=== PATIENT | female | born 1995 | race Caucasian/White ===

== ENCOUNTER 2017-02-07 05:08 | Inpatient (IN) | payer MEDICAID ==
[2017-02-07] MEDS: Lactated Ringers 1,000 ML IV SCH ×4 (05:25→16:06)
[2017-02-07] MEDS ORDERED: ceFAZolin 2 GM in Premix Bag 1 BAG IV ONE (06:28)
[2017-02-07] MEDS ORDERED: Citric Acid/Sodium Citrate Solution 30 ML Cup PO ONE (06:28)
[2017-02-07] MEDS ORDERED: Oxytocin/Normal Saline 30 UNIT/500 ML BAG IV SCH (06:30)
[2017-02-07] MEDS ORDERED: Oxytocin/Normal Saline 60 UNIT/1,000 ML BAG ONE (06:38)
--- NOTE | 2017-02-07 07:48 | HP ---
She was admitted short time ago at [facility]. HISTORY OF PRESENT ILLNESS: This patient is a 21-year-old, 1, who is followed by Dr. Albert. She does have an NEIDA of February 01 and she is currently at 40 weeks 6 days gestation. She did enter Labor and Delivery earlier this morning between 5 and 5:30. The patient does have a history of spontaneous rupture of membranes of clear fluid that happened at about 4:00 a.m. at home this morning. She has been experiencing good movement. She has been noted, however, to have 2 significant spontaneous or variable deceleration down to the 88 and 90 range. Those decelerations did last 2-1/2 to 3 minutes. There has been recovery at the present time. The patient does have accelerations at the present time and minimal variability. She is currently in the left lateral recumbent position with oxygen flowing. Please see the electronic health record for the remainder of her lab data and history. She denies any other complications with this . She is known to be group B strep negative. PAST MEDICAL HISTORY: Denies any knowledge of heart, lung, liver, or kidney disease. ALLERGIES: None known. PAST SURGICAL HISTORY: Previous surgery, none. MEDICATIONS: At present: 1. vitamins. 2. Iron. FAMILY HISTORY: Noncontributory. Denies any knowledge of diabetes. SOCIAL HISTORY: She is a nonsmoker and does not use alcohol. She is here with her today and [place]. PHYSICAL EXAMINATION: Vital Signs: Admission vital signs revealed the blood pressure to be normotensive. The patient is afebrile. HEENT: The sclerae are nonicteric. Lungs: Clear to A. Heart: Regular rhythm without murmur. ABDOMEN: Gravid with heart tone baseline in the 136-144 range at present. There is a category 1 heart tones at the moment with minimal variability and accelerations present. Also there was nice scalp stimulation. Increase in heart beat noted on my vaginal exam. Please see the 2 significant variable decelerations from a short time ago, however. The patient is in the left lateral recumbent position at the present time and estimated weight is somewhat difficult to determine, but possibly in the 8-pound range. Vaginal: Exam reveals the cervix to be 3.5 cm dilated, 90% effaced, and the vertex at -1 station. No loop of cord is palpated. Extremities: Negative. IMPRESSION: A 21-year-old 1 patient at 40 weeks 6 days gestation. Because of the non-reassuring heart tones earlier and because of the decelerations of a variable nature that occurred short time ago and very shortly after admission, we have thoroughly discussed her with Dr. Albert. We do recommend section because the patient is early in the course of labor and the likelihood of further deterioration of the heart tones is high. She is a primigravida with a number of hours of labor ahead of her. We did thoroughly explained to the patient the goals and recommendations for a primary section. The alternative of further labor, which I do not recommend was also discussed with her. We did discuss the possible risk of complications and possible adverse outcomes and adverse side effects from the section with her. She does give us consent to proceed with section as well as transfusion if it was needed. All of her questions have been answered and also the 's questions have been answered as well. We will proceed with emergency section shortly. [facility] /[id number]
[2017-02-07] MEDS ORDERED: diphenhydrAMINE 50 MG/ML SDV IVPUSH PRN (08:38)
[2017-02-07] MEDS ORDERED: Naloxone 2 MG/2 ML Syringe IVPUSH PRN (08:38)
[2017-02-07] MEDS ORDERED: Misoprostol 400 MCG (4 X 100 MCG TAB) RECTAL PRN (08:38)
[2017-02-07] MEDS ORDERED: Carboprost Tromethamine 250 MCG/1 ML Amp IM ONE (08:38)
[2017-02-07] MEDS ORDERED: Ondansetron 4 MG/2 ML SDV IV PRN (08:38)
[2017-02-07] MEDS ORDERED: Acetaminophen 325 MG Tab PO PRN (08:38)
[2017-02-07] MEDS ORDERED: ePHEDrine 50 MG/ML SDV IVPUSH PRN (08:38)
[2017-02-07] MEDS ORDERED: Methylergonovine 0.2 MG/1 ML Amp IM PRN (08:38)
--- NOTE | 2017-02-07 08:41 | PCM.DEL ---
L & D Note - General Info Date of Service: 02/07/17 - Delivery Note Labor: spontaneous Delivery Outcome: Livebirth Delivery Method: Primary Presentation: Vertex Amniotic Fluid Description: Clear Cord: 3 vessels Resuscitation needed: Yes [place]: stimulated, warmed Provider: Sedrick Lieberman Score 1 min: 9 Score 5 min: 9 Delivery Comments (Free Text/Narrative):: 21-year-old, , female at 40w5d presented to Labor and Delivery with spontaneous rupture of membranes that occurred approximately 1 hour prior to arrival. When patient was connected to monitor, blood pressure was found to have recurrent and prolonged decelerations. This did not resolve with conservative measures so the decision was made to proceed with operative delivery. A viable baby boy weighing 4090 g with Apgars of 9 and 9 at one and 5 minutes respectively was delivered. There were no immediate complications. Please see operative report for more details. Melissa Albert MD - General Info Date of Service: 02/07/17 - Patient Data Vitals - most recent: Last Vital Signs Temp 36.5 C 02/07/17 05:14 Pulse 71 02/07/17 06:00 Resp 16 02/07/17 06:00 BP 125/76 02/07/17 06:00 Pulse Ox Weight - most recent: 94.347 kg I&O - last 24 hours: Intake & Output 02/06/17 02/07/17 02/07/17 22:59 06:59 14:59 Intake Total 1000 100 Balance 1000 100 Lab Results last 24 hrs: Laboratory Results - last 24 hr 02/07/17 02/07/17 Range/Units 05:20 05:20 WBC 12.3 H (5.0-10.0) 10^3/uL RBC 4.31 (4.2-5.4) 10^6/uL Hgb 10.7 L (12.0-16.0) g/dL Hct 34.1 L (37.0-47.0) % MCV 79.1 L (80-100) fL MCH 24.8 L (27.0-34.0) pg MCHC 31.4 L (33.0-35.0) g/dL Plt Count 235 (150-450) 10^3/uL Blood Type B POSITIVE Gel Antibody Screen Negative Med Orders - Current: Current Medications Oxytocin/Sodium Chloride (Pitocin In Ns 30 Unit/500 Ml) 30 unit in 500 mls @ 2 mls/hr IV TITRATE YURY; 2 MUNITS/MIN PRN Reason: Protocol Discontinued Medications Citric Acid/Sodium Citrate (Bicitra Solution) 30 ml PO ONETIME ONE Stop: 02/07/17 06:29 Last Admin: 02/07/17 06:50 Dose: 30 ml Lactated Ringer's (Ringers, Lactated) 1,000 mls @ 125 mls/hr IV ASDIRECTED YURY Last Admin: 02/07/17 06:43 Dose: 125 mls/hr Cefazolin Sodium/Dextrose 2 gm (/ Premix) 50 mls @ 100 mls/hr IV ONETIME ONE Stop: 02/07/17 06:57 Last Admin: 02/07/17 07:02 Dose: 100 mls/hr Oxytocin/Sodium Chloride (Pitocin In Ns 30 Unit/500 Ml) Confirm Administered Dose 60 unit in 1,000 mls @ as directed .ROUTE .STK-MED ONE Stop: 02/07/17 06:39 - Problem List & Annotations (1) care in third trimester SNOMED Code(s): 100352706, 70452616, 54408768, 940322404, 469415483 Code(s): Z34.93 - ENCNTR FOR SUPRVSN OF NORMAL PREG, UNSP, THIRD TRIMESTER Status: Acute (2) intolerance to labor, delivered, current hospitalization SNOMED Code(s): 974758541 Code(s): O77.9 - LABOR AND DELIVERY COMPLICATED BY STRESS, UNSPECIFIED Status: Acute (3) Delivered by section SNOMED Code(s): 056903429 Code(s): O82 - ENCOUNTER FOR DELIVERY WITHOUT INDICATION Status: Acute - Problem List Review Problem List Initiated/Reviewed/Updated: Yes - My Orders Last 24 Hours: My Active Orders 02/07/17 06:30 Oxytocin/Normal Saline [Pitocin in NS 30 UNIT/500 ML] 30 unit in 500 ml IV TITRATE 02/07/17 08:38 Patient Status [ADT] Routine Bedrest [RC] ASDIRECTED Communication Order [RC] PER UNIT ROUTINE Communication Order [RC] PER UNIT ROUTINE Communication Order [RC] Per Unit Routine Intake and Output [RC] Q8H Notify Provider Intake and Out [RC] ASDIRECTED Notify Provider Vital Signs OB [RC] ASDIRECTED RT Incentive Spirometry [RC] Q2HWA Urinary Catheter Removal [RC] Per Unit Routine Vital Signs [RC] PER UNIT ROUTINE Consult to Curator [CONS] Routine Acetaminophen [Tylenol] 650 mg PO Q6H PRN Acetaminophen/oxyCODONE [Percocet 325-5 MG] 1 tab PO Q4H PRN Acetaminophen/oxyCODONE [Percocet 325-5 MG] 2 tab PO Q4H PRN Carboprost Tromethamine [Hemabate DS] 250 mcg IM ONETIME ONE Docusate Sodium [Colace] 100 mg PO Q12H PRN Ibuprofen [Motrin] 800 mg PO Q8H PRN Methylergonovine [Methergine] 0.2 mg IM ONETIME PRN Misoprostol [Cytotec] 800 mcg RECTAL ASDIRECTED PRN Naloxone [Narcan] 0.1 mg IVPUSH SEECOMMENT PRN Ondansetron [Zofran] 4 mg IV Q4H PRN Simethicone 80 mg PO Q4H PRN diphenhydrAMINE [Benadryl] 25 mg IVPUSH Q6H PRN ePHEDrine [ePHEDrine Sulfate] 5 mg IVPUSH SEECOMMENT PRN Antiembolic Hose [OM.PC] Per Unit Routine Assess Lochia [WOMSER] Per Unit Routine Assess Uterine Involution [WOMSER] Per Unit Routine Breast Pump [WOMSER] Per Unit Routine Sequential Compression Device [OM.PC] Per Unit Routine Resuscitation Status Routine 02/07/17 08:39 Antiembolic Devices [RC] PER UNIT ROUTINE 02/07/17 08:45 Ketorolac [Toradol] 15 mg IVPUSH Q6H Lactated Ringers @ 125 MLS/HR(1000ml) Lactated Ringers [Ringers, Lactated] 1, 000 ml IV ASDIRECTED 02/07/17 Breakfast Clear Liquid Diet [DIET] 02/07/17 Lunch Regular Diet [DIET] 02/08/17 07:00 CBC W/O DIFF,HEMOGRAM [HEME] Routine - Assessment Assessment:: 21-year-old now , status post primary section for nonreassuring heart tones - Plan Plan:: 1. Initiate routine postoperative orders 2. Repeat hemoglobin in the morning 3. Consult as patient desires to breast-feed 4. Anticipate discharge 02/10/17. Melissa Albert MD
--- NOTE | 2017-02-07 08:41 | PCM.SN ---
- Free Text/Narrative Note: Section Operative Report Date of Surgery: 02/07/2017 Surgeon: Melissa Albert MD Block And Case Maker: Dr. Mio MD Pre-Operative Diagnosis: PROM intolerance of labor Post-Operative Diagnosis: Same Procedure Performed: Primary low transverse section Anesthesia: Spinal EBL: 350 mL IVF: 3000 mL Drains: Stauffer catheter with 200 mL of urine output Specimens: None Complications: None apparent Findings: Normal uterus, tubes, and ovaries. Indication and Consent: Upon arrival to Labor and Delivery with PROM, the heart tracing showed signs of developing hypoxemia. Conservative measures of oxygen supplementation and position changes did not relieve these findings. The heart tracing continued to show evidence of worsening hypoxemia. section was recommended to the patient for wellbeing. The patient understood that the risks of section include, but are not limited to, visceral or vascular injury, infection, blood loss and need for blood transfusion, prolonged hospitalization, and reoperation. The patient stated understanding and desired to proceed. All questions were answered. Procedure in Detail: The patient was taken to the operating room. Stauffer catheter and pneumoboots were placed. She was then prepped and draped in routine fashion in dorsal supine position with a left thacker tilt. Two grams of cefazolin (Ancef) were given for infection prophylaxis. Spinal anesthesia was administered. A Pfannenstiel skin incision was made with a scalpel and carried down to the fascia. The fascia was incised and extended laterally. The rectus musculature was in the midline down to the level of the pubic symphysis. The peritoneum was found to be free of adherent bowel or bladder tissue and entered bluntly. The peritoneal opening was then extended superiorly and inferiorly to the bladder reflection with good visualization of the bladder. The Buddy retractor was placed. Brief intraabdominal survey revealed scant, clear peritoneal fluid and thinned-out lower uterine segment. Using forceps and mets, a bladder flap was formed and bluntly from the uterus. The lower uterine segment was incised with a scalpel. The amniotic sac was ruptured with an Allis clamp and clear fluid was noted. The uterine incision was extended bluntly with lateral and upward traction. The fetus was in vertex position. The head was elevated out of the maternal pelvis with special attention paid to avoid using the uterine incision as a fulcrum. Gentle fundal pressure was applied once the head was brought into the incision. The infant was delivered with minimal difficulty. Bulb suctioning of the 's nose and mouth was not performed on the operative field. The cord was clamped and cut in standard fashion, and the was handed over to the awaiting nursery staff. IV oxytocin was initiated to facilitate uterine contractions. The placenta was delivered intact with manual message of the uterine fundus along with gentle cord traction. The uterus was then exteriorized. The inside of the uterus was gently wiped with a lap sponge to assure complete removal of remaining products of conception. The uterine incision was closed with 0 - Vicryl suture in a running locked fashion. A second imbricating layer of 0- Vicryl was also placed. The incision was inspected and hemostasis achieved. The ovaries and tubes were visualized and found to be normal. The uterus, tubes, and ovaries were returned to the abdominal cavity. The blood clots and fluid were wiped out of the abdomen and pelvis with moist laparotomy sponges. The uterine incision was re-inspected along with all other incised surfaces and good hemostasis was confirmed. The Buddy retractor was removed. The peritoneus was then closed using 2-0 Vicyrl. The fascia was then closed with 2-0 looped PDS suture with care not to include any underlying abdominal contents. The sub-cutaneous layer was reapproximated with plain suture. The skin was closed with 3-0 suture on a Kirk needle in a subcuticular fashion. Dressing was applied. Sponge and instrument counts were reported as correct times two. Pt tolerated procedure well and was taken to PACU in stable condition. Melissa Albert MD
[2017-02-07] MEDS: Ketorolac 30 MG/ML SDV IVPUSH SCH ×2 (16:02→20:52)
[2017-02-07] MEDS: Simethicone 80 MG Tab.Chew PO PRN (20:53)
[2017-02-07] MEDS: Docusate Sodium 100 MG Cap PO PRN (20:53)
[2017-02-08] MEDS: Ketorolac 30 MG/ML SDV IVPUSH SCH (02:27)
[2017-02-08] MEDS: Lactated Ringers 1,000 ML IV SCH (02:51)
[2017-02-08] MEDS: Acetaminophen/oxyCODONE 325-5 MG Tab PO PRN ×4 (08:03→23:02)
[2017-02-08] MEDS: Simethicone 80 MG Tab.Chew PO PRN ×3 (08:03→20:11)
[2017-02-08] MEDS: Docusate Sodium 100 MG Cap PO PRN ×2 (08:04→20:13)
[2017-02-08] MEDS: Ibuprofen 800 MG Tab PO PRN ×2 (11:50→20:11)
[2017-02-08] MEDS: Prenatal Multivitamin with Calcium/Folic Acid/Iron Tab PO SCH (11:50)
[2017-02-09] MEDS: Acetaminophen/oxyCODONE 325-5 MG Tab PO PRN ×4 (07:06→21:45)
[2017-02-09] MEDS: Ibuprofen 800 MG Tab PO PRN ×2 (07:06→17:48)
[2017-02-09] MEDS: Simethicone 80 MG Tab.Chew PO PRN ×3 (07:07→21:10)
[2017-02-09] MEDS: Prenatal Multivitamin with Calcium/Folic Acid/Iron Tab PO SCH (07:07)
[2017-02-09] MEDS: Docusate Sodium 100 MG Cap PO PRN ×2 (07:07→21:10)
[2017-02-09] MEDS ORDERED: Hydrocortisone 1% Oint 28 GM Tube TOP PRN (17:58)
[2017-02-10] MEDS: Acetaminophen/oxyCODONE 325-5 MG Tab PO PRN ×3 (01:46→10:10)
[2017-02-10] MEDS: Ibuprofen 800 MG Tab PO PRN ×2 (01:46→10:11)
--- NOTE | 2017-02-10 09:18 | PCM.PNPP ---
- General Info Date of Service: 02/09/17 Subjective Update: Patient is postoperative day #2 status post primary section for nonreassuring heart tones. She is doing well. She reports her pain is well controlled. She is tolerating a regular diet. She has been out of bed. Her Stauffer has been removed, and she is urinating without difficulty. She is passing gas but has not yet had a bowel movement. She reports minimal vaginal bleeding. Breast-feeding is going well. No concerns per patient or per nursing. Functional Status: Reports: pain controlled, tolerating diet, ambulating, urinating - Review of Systems General: Reports: No Symptoms HEENT: Reports: no symptoms Pulmonary: Reports: no symptoms Cardiovascular: Reports: No Symptoms Gastrointestinal: Reports: No symptoms Genitourinary: Reports: no symptoms Musculoskeletal: Reports: no symptoms - General Info Date of Service: 02/09/17 - Patient Data Vital Signs - most recent: Last Vital Signs Temp 36.5 C 02/10/17 04:00 Pulse 101 H 02/10/17 04:00 Resp 16 02/10/17 04:00 BP 119/72 02/10/17 04:00 Pulse Ox 98 02/10/17 04:00 Weight - most recent: 94.347 kg I&O - last 24 hours: Intake & Output 02/09/17 02/10/17 02/10/17 22:59 06:59 14:59 Intake Total 520 Balance 520 Med Orders - Current: Current Medications Acetaminophen (Tylenol) 650 mg PO Q6H PRN PRN Reason: mild pain or fever Diphenhydramine HCl (Benadryl) 25 mg IVPUSH Q6H PRN PRN Reason: Itching or Nausea Docusate Sodium (Colace) 100 mg PO Q12H PRN PRN Reason: Constipation Last Admin: 02/09/17 21:10 Dose: 100 mg Ephedrine Sulfate (Ephedrine Sulfate) 5 mg IVPUSH SEECOMMENT PRN PRN Reason: Other Hydrocortisone (Hydrocortisone 1% Oint) 0 gm TOP TID PRN PRN Reason: Itching Oxytocin/Sodium Chloride (Pitocin In Ns 30 Unit/500 Ml) 30 unit in 500 mls @ 2 mls/hr IV TITRATE YURY; 2 MUNITS/MIN PRN Reason: Protocol Last Titration: 02/07/17 16:08 Dose: 0 munits/min, 0 mls/hr Lactated Ringer's (Ringers, Lactated) 1,000 mls @ 125 mls/hr IV ASDIRECTED [facility] Last Admin: 02/08/17 02:51 Dose: 125 mls/hr Ibuprofen (Motrin) 800 mg PO Q8H PRN PRN Reason: mild pain or fever Last Admin: 02/10/17 01:46 Dose: 800 mg Methylergonovine Maleate (Methergine) 0.2 mg IM ONETIME PRN PRN Reason: Excessive Vaginal Bleeding Misoprostol (Cytotec) 800 mcg RECTAL ASDIRECTED PRN PRN Reason: Bleeding Naloxone HCl (Narcan) 0.1 mg IVPUSH SEECOMMENT PRN PRN Reason: Respiratory Depression Ondansetron HCl (Zofran) 4 mg IV Q4H PRN PRN Reason: Nausea/Vomiting Oxycodone/Acetaminophen (Percocet 325-5 Mg) 1 tab PO Q4H PRN PRN Reason: Pain (moderate 4-6) Last Admin: 02/08/17 13:00 Dose: 1 tab Oxycodone/Acetaminophen (Percocet 325-5 Mg) 2 tab PO Q4H PRN PRN Reason: Pain (moderate 4-6) Last Admin: 02/10/17 05:50 Dose: 2 tab Prenat Multivit/[place]/Iron/Folic Ac ( Plus Iron) 1 each PO WITHBREAKFAST [facility] Last Admin: 02/09/17 07:07 Dose: 1 each Simethicone (Simethicone) 80 mg PO Q4H PRN PRN Reason: Gas Last Admin: 02/09/17 21:10 Dose: 80 mg Discontinued Medications Carboprost Tromethamine (Hemabate Ds) 250 mcg IM ONETIME ONE Stop: 02/07/17 08:39 Last Admin: 02/07/17 16:04 Dose: Not Given Citric Acid/Sodium Citrate (Bicitra Solution) 30 ml PO ONETIME ONE Stop: 02/07/17 06:29 Last Admin: 02/07/17 06:50 Dose: 30 ml Lactated Ringer's (Ringers, Lactated) 1,000 mls @ 125 mls/hr IV ASDIRECTED [facility] Last Admin: 02/07/17 06:43 Dose: 125 mls/hr Cefazolin Sodium/Dextrose 2 gm (/ Premix) 50 mls @ 100 mls/hr IV ONETIME ONE Stop: 02/07/17 06:57 Last Admin: 02/07/17 07:02 Dose: 100 mls/hr Oxytocin/Sodium Chloride (Pitocin In Ns 30 Unit/500 Ml) Confirm Administered Dose 60 unit in 1,000 mls @ as directed .ROUTE .STK-MED ONE Stop: 02/07/17 06:39 Ketorolac Tromethamine (Toradol) 15 mg IVPUSH Q6H YURY Stop: 02/08/17 02:01 Last Admin: 02/08/17 02:27 Dose: 15 mg - Infant Interaction Infant Disposition, : in Room with Family Infant Interaction: Holding Infant Infant Feeding: Breastfed Infant; Nursed Well Support Person: Significant Other - Recovery Exam Fundal Tone: Firm Fundal Level: 2 Fingerbreadths Below Umbilicus Fundal Placement: Midline Lochia Amount: Small Lochia Color: Rubra/Red Perineum Description: Intact, Minimal Bruising/Swelling Episiotomy/Laceration: None Bladder Status: Voiding Urinary Elimination: Indwelling Catheter - Exam General: alert, oriented Lungs: Clear to auscultation, Normal respiratory effort Cardiovascular: Regular Rate, Regular Rhythm, No Murmurs Abdomen: bowel sounds present, soft, no tenderness, no distension Extremities: no edema Skin: warm, dry, intact Wound/Incisions: healing well, no drainage. No: erythema - Problem List & Annotations (1) Delivered by section SNOMED Code(s): 603850267 Code(s): O82 - ENCOUNTER FOR DELIVERY WITHOUT INDICATION Status: Acute (2) intolerance to labor, delivered, current hospitalization SNOMED Code(s): 905528690 Code(s): O77.9 - LABOR AND DELIVERY COMPLICATED BY STRESS, UNSPECIFIED Status: Acute (3) care in third trimester SNOMED Code(s): 090214090, 72994008, 02315623, 248817803, 130418782 Code(s): Z34.93 - ENCNTR FOR SUPRVSN OF NORMAL PREG, UNSP, THIRD TRIMESTER Status: Acute - Problem List Review Problem List Initiated/Reviewed/Updated: Yes - My Orders Last 24 Hours: My Active Orders 02/09/17 17:58 Hydrocortisone [Hydrocortisone 1% Oint] 0 gm TOP TID PRN - Assessment Assessment:: 21-year-old female postoperative day #2 status post primary section - Plan Plan:: 1. Continue routine cares 2. Breast-feeding well 3. Anticipate discharge tomorrow. Melissa Albert MD
--- NOTE | 2017-02-10 09:18 | PCM.PNPP ---
- General Info Date of Service: 02/08/17 Subjective Update: Patient is postoperative day #1 status post primary section for nonreassuring heart tones. She is doing well. She reports her pain is well controlled. She is tolerating a regular diet. She has been out of bed. Her Stauffer is in place, and she is making good urine output. She reports minimal vaginal bleeding. Breast-feeding is going well. No concerns per patient or per nursing. Functional Status: Reports: pain controlled, tolerating diet. Denies: new symptoms - Review of Systems General: Reports: No Symptoms HEENT: Reports: no symptoms Pulmonary: Reports: no symptoms Cardiovascular: Reports: Orthopnea Gastrointestinal: Reports: No symptoms Genitourinary: Reports: no symptoms Musculoskeletal: Reports: no symptoms Skin: Reports: no symptoms - General Info Date of Service: 02/08/17 - Patient Data Vital Signs - most recent: Last Vital Signs Temp 36.5 C 02/10/17 04:00 Pulse 101 H 02/10/17 04:00 Resp 16 02/10/17 04:00 BP 119/72 02/10/17 04:00 Pulse Ox 98 02/10/17 04:00 Weight - most recent: 94.347 kg I&O - last 24 hours: Intake & Output 02/09/17 02/10/17 02/10/17 22:59 06:59 14:59 Intake Total 520 Balance 520 Med Orders - Current: Current Medications Acetaminophen (Tylenol) 650 mg PO Q6H PRN PRN Reason: mild pain or fever Diphenhydramine HCl (Benadryl) 25 mg IVPUSH Q6H PRN PRN Reason: Itching or Nausea Docusate Sodium (Colace) 100 mg PO Q12H PRN PRN Reason: Constipation Last Admin: 02/09/17 21:10 Dose: 100 mg Ephedrine Sulfate (Ephedrine Sulfate) 5 mg IVPUSH SEECOMMENT PRN PRN Reason: Other Hydrocortisone (Hydrocortisone 1% Oint) 0 gm TOP TID PRN PRN Reason: Itching Oxytocin/Sodium Chloride (Pitocin In Ns 30 Unit/500 Ml) 30 unit in 500 mls @ 2 mls/hr IV TITRATE YURY; 2 MUNITS/MIN PRN Reason: Protocol Last Titration: 02/07/17 16:08 Dose: 0 munits/min, 0 mls/hr Lactated Ringer's (Ringers, Lactated) 1,000 mls @ 125 mls/hr IV ASDIRECTED [facility] Last Admin: 02/08/17 02:51 Dose: 125 mls/hr Ibuprofen (Motrin) 800 mg PO Q8H PRN PRN Reason: mild pain or fever Last Admin: 02/10/17 01:46 Dose: 800 mg Methylergonovine Maleate (Methergine) 0.2 mg IM ONETIME PRN PRN Reason: Excessive Vaginal Bleeding Misoprostol (Cytotec) 800 mcg RECTAL ASDIRECTED PRN PRN Reason: Bleeding Naloxone HCl (Narcan) 0.1 mg IVPUSH SEECOMMENT PRN PRN Reason: Respiratory Depression Ondansetron HCl (Zofran) 4 mg IV Q4H PRN PRN Reason: Nausea/Vomiting Oxycodone/Acetaminophen (Percocet 325-5 Mg) 1 tab PO Q4H PRN PRN Reason: Pain (moderate 4-6) Last Admin: 02/08/17 13:00 Dose: 1 tab Oxycodone/Acetaminophen (Percocet 325-5 Mg) 2 tab PO Q4H PRN PRN Reason: Pain (moderate 4-6) Last Admin: 02/10/17 05:50 Dose: 2 tab Prenat Multivit/[place]/Iron[facility]olic Ac ( [facility]) [facility] Last Admin: 02/09/17 07:07 Dose: 1 each Simethicone (Simethicone) 80 mg PO Q4H PRN PRN Reason: Gas Last Admin: 02/09/17 21:10 Dose: 80 mg Discontinued Medications Carboprost Tromethamine (Hemabate Ds) 250 mcg IM ONETIME ONE Stop: 02/07/17 08:39 Last Admin: 02/07/17 16:04 Dose: Not Given Citric Acid/Sodium Citrate (Bicitra Solution) 30 ml PO ONETIME ONE Stop: 02/07/17 06:29 Last Admin: 02/07/17 06:50 Dose: 30 ml Lactated Ringer's (Ringers, Lactated) 1,000 mls @ 125 mls/hr IV ASDIRECTED [facility] Last Admin: 02/07/17 06:43 Dose: 125 mls/hr Cefazolin Sodium/Dextrose 2 gm (/ Premix) 50 mls @ 100 mls/hr IV ONETIME ONE Stop: 02/07/17 06:57 Last Admin: 02/07/17 07:02 Dose: 100 mls/hr Oxytocin/Sodium Chloride (Pitocin In Ns 30 Unit/500 Ml) Confirm Administered Dose 60 unit in 1,000 mls @ as directed .ROUTE .STK-MED ONE Stop: 02/07/17 06:39 Ketorolac Tromethamine (Toradol) 15 mg IVPUSH Q6H YURY Stop: 02/08/17 02:01 Last Admin: 02/08/17 02:27 Dose: 15 mg - Interaction Disposition, : in Room with Family Infant Interaction: Holding Infant Feeding: Breastfed ; Nursed Well Support Person: Significant Other - Recovery Exam Fundal Tone: Firm Fundal Level: 2 Fingerbreadths Below Umbilicus Fundal Placement: Midline Lochia Amount: Small Lochia Color: Rubra/Red Perineum Description: Intact, Minimal Bruising/Swelling Episiotomy/Laceration: None Bladder Status: Voiding Urinary Elimination: Indwelling Catheter - Exam General: alert, oriented Lungs: Clear to auscultation, Normal respiratory effort Cardiovascular: Regular Rate, Regular Rhythm, No Murmurs Abdomen: soft, no tenderness, no distension Extremities: edema (Trace) Skin: warm, dry, intact Wound/Incisions: dressing dry and intact - Problem List & Annotations (1) Delivered by section SNOMED Code(s): 577864915 Code(s): O82 - ENCOUNTER FOR DELIVERY WITHOUT INDICATION Status: Acute (2) intolerance to labor, delivered, current hospitalization SNOMED Code(s): 851073796 Code(s): O77.9 - LABOR AND DELIVERY COMPLICATED BY STRESS, UNSPECIFIED Status: Acute (3) care in third trimester SNOMED Code(s): 469811408, 64017429, 90054117, 422934971, 367144659 Code(s): Z34.93 - ENCNTR FOR SUPRVSN OF NORMAL PREG, UNSP, THIRD TRIMESTER Status: Acute - Problem List Review Problem List Initiated/Reviewed/Updated: Yes - My Orders Last 24 Hours: My Active Orders 02/09/17 17:58 Hydrocortisone [Hydrocortisone 1% Oint] 0 gm TOP TID PRN - Assessment Assessment:: 21-year-old female postoperative day #1 status post primary section - Plan Plan:: 1. Continue routine cares 2. Appropriate drop in hemoglobin noted. Will start iron p.r.n. 3. Breast-feeding well. available as needed. 4. Anticipate discharge 02/10/17. Melissa Albert MD
--- NOTE | 2017-02-10 09:19 | PCM.DCSUM1 ---
Discharge Summary - Hospital Course Free Text/Narrative:: 21-year-old female presented to labor and delivery with spontaneous rupture of membranes at 40w5d. Due to nonreassuring heart tones, patient was taken for section. She delivered a viable male infant weighing 4090 g with Apgars of 9 and 9 at one and 5 minutes respectively. There were no complications with delivery. - Discharge Data Discharge Date: 02/10/17 Discharge Disposition: Home, Self-Care 01 Condition: Good - Patient Summary/Data Operative Procedure(s) Performed: Primary section Complications: None Consults: Consultations 02/07/17 08:38 Consult to Plumbing Technician [CONS] Routine Labs Pending at D/C: None Recommended Follow-up Testing/Procedures: None Planned Operative Procedure(s) after DC: None Hospital Course: Patient had an unremarkable postoperative course. She had an expected decrease in hemoglobin due to blood loss during surgery; however, she remained clinically asymptomatic. - Patient Instructions Diet: Usual Diet as Tolerated Activity: No Lifting Over 20 Pounds Driving: Do Not Drive (While taking pain medication) Showering/Bathing: May Shower Wound/Incision Care: Keep Operative Site/Wound Site Clean and Dry Notify Provider of: Fever, Increased Pain, Swelling and Redness, Drainage, Nausea and/or Vomiting - Discharge Plan Home Medications: Home Meds Ferrous Sulfate 1 tab PO DAILY 02/07/17 [History] Vit with Ca/FA/Iron [ Plus Iron] 1 tab PO DAILY 02/07/17 [ History] Acetaminophen [Tylenol] 650 mg PO Q6H PRN #0 tablet 02/10/17 [Rx] Docusate Sodium [Colace] 100 mg PO Q12H PRN #0 cap 02/10/17 [Rx] Patient Handouts: Adhesions, [id number], Delivery, Care After, Breast Engorgement Referrals: Melissa Albert MD [Primary Care Provider] - (6 weeks) - Discharge Summary/Plan Comment DC Time >30 min.: No Discharge Summary/Plan Comment: 1. Discharge patient home today 2. Follow-up in [address] Albert for visit. 3. Reasons to return sooner were discussed with patient Melissa Albert MD - General Info Date of Service: 02/10/17 Subjective Update: Patient is postoperative day #3 status post primary section for nonreassuring heart tones. She is doing well. She reports her pain is well controlled. She is tolerating a regular diet. She has been out of bed. Her Stauffer has been removed, and she is urinating without difficulty. She is passing gas and has had a bowel movement. She reports minimal vaginal bleeding. Breast- feeding is going well. No concerns per patient or per nursing. Functional Status: Reports: pain controlled, tolerating diet, ambulating, urinating. Denies: new symptoms - Review of Systems General: Reports: No Symptoms HEENT: Reports: no symptoms Pulmonary: Reports: no symptoms Cardiovascular: Reports: No Symptoms Gastrointestinal: Reports: No symptoms Genitourinary: Reports: no symptoms Musculoskeletal: Reports: no symptoms Skin: Reports: no symptoms Neurological: Reports: No Symptoms - Patient Data Vitals - Most Recent: Last Vital Signs Temp 36.5 C 02/10/17 04:00 Pulse 101 H 02/10/17 04:00 Resp 16 02/10/17 04:00 BP 119/72 02/10/17 04:00 Pulse Ox 98 02/10/17 04:00 Weight - Most Recent: 94.347 kg I&O - Last 24 hours: Intake & Output 02/09/17 02/10/17 02/10/17 22:59 06:59 14:59 Intake Total 520 Balance 520 Med Orders - Current: Current Medications Acetaminophen (Tylenol) 650 mg PO Q6H PRN PRN Reason: mild pain or fever Diphenhydramine HCl (Benadryl) 25 mg IVPUSH Q6H PRN PRN Reason: Itching or Nausea Docusate Sodium (Colace) 100 mg PO Q12H PRN PRN Reason: Constipation Last Admin: 02/09/17 21:10 Dose: 100 mg Ephedrine Sulfate (Ephedrine Sulfate) 5 mg IVPUSH SEECOMMENT PRN PRN Reason: Other Hydrocortisone (Hydrocortisone 1% Oint) 0 gm TOP TID PRN PRN Reason: Itching Oxytocin/Sodium Chloride (Pitocin In Ns 30 Unit/500 Ml) 30 unit in 500 mls @ 2 mls/hr IV TITRATE YURY; 2 MUNITS/MIN PRN Reason: Protocol Last Titration: 02/07/17 16:08 Dose: 0 munits/min, 0 mls/hr Lactated Ringer's (Ringers, Lactated) 1,000 mls @ 125 mls/hr IV ASDIRECTED [facility] Last Admin: 02/08/17 02:51 Dose: 125 mls/hr Ibuprofen (Motrin) 800 mg PO Q8H PRN PRN Reason: mild pain or fever Last Admin: 02/10/17 01:46 Dose: 800 mg Methylergonovine Maleate (Methergine) 0.2 mg IM ONETIME PRN PRN Reason: Excessive Vaginal Bleeding Misoprostol (Cytotec) 800 mcg RECTAL ASDIRECTED PRN PRN Reason: Bleeding Naloxone HCl (Narcan) 0.1 mg IVPUSH SEECOMMENT PRN PRN Reason: Respiratory Depression Ondansetron HCl (Zofran) 4 mg IV Q4H PRN PRN Reason: Nausea/Vomiting Oxycodone/Acetaminophen (Percocet 325-5 Mg) 1 tab PO Q4H PRN PRN Reason: Pain (moderate 4-6) Last Admin: 02/08/17 13:00 Dose: 1 tab Oxycodone/Acetaminophen (Percocet 325-5 Mg) 2 tab PO Q4H PRN PRN Reason: Pain (moderate 4-6) Last Admin: 02/10/17 05:50 Dose: 2 tab Prenat Multivit/[place]/Iron/Folic Ac ( Plus Iron) 1 each PO WITHBREAKFAST [facility] Last Admin: 02/09/17 07:07 Dose: 1 each Simethicone (Simethicone) 80 mg PO Q4H PRN PRN Reason: Gas Last Admin: 02/09/17 21:10 Dose: 80 mg Discontinued Medications Carboprost Tromethamine (Hemabate Ds) 250 mcg IM ONETIME ONE Stop: 02/07/17 08:39 Last Admin: 02/07/17 16:04 Dose: Not Given Citric Acid/Sodium Citrate (Bicitra Solution) 30 ml PO ONETIME ONE Stop: 02/07/17 06:29 Last Admin: 02/07/17 06:50 Dose: 30 ml Lactated Ringer's (Ringers, Lactated) 1,000 mls @ 125 mls/hr IV ASDIRECTED [facility] Last Admin: 02/07/17 06:43 Dose: 125 mls/hr Cefazolin Sodium/Dextrose 2 gm (/ Premix) 50 mls @ 100 mls/hr IV ONETIME ONE Stop: 02/07/17 06:57 Last Admin: 02/07/17 07:02 Dose: 100 mls/hr Oxytocin/Sodium Chloride (Pitocin In Ns 30 Unit/500 Ml) Confirm Administered Dose 60 unit in 1,000 mls @ as directed .ROUTE .STK-MED ONE Stop: 02/07/17 06:39 Ketorolac Tromethamine (Toradol) 15 mg IVPUSH Q6H YURY Stop: 02/08/17 02:01 Last Admin: 02/08/17 02:27 Dose: 15 mg - Exam General: Reports: alert, oriented Lungs: Reports: Clear to auscultation Cardiovascular: Reports: Regular Rate, Regular Rhythm, No Murmurs Abdomen: Reports: bowel sounds present, soft, no tenderness, no distension Extremities: Reports: no edema Skin: Reports: warm, dry, intact Wound/Incisions: Reports: healing well. Denies: no drainage, erythema *Q Meaningful Use (DIS) - VTE *Q VTE Criteria *Q: - Stroke *Q Stroke Criteria *Q: - AMI *Q AMI Criteria *Q:
[2017-02-10] MEDS: Prenatal Multivitamin with Calcium/Folic Acid/Iron Tab PO SCH (10:11)
[2017-02-10] MEDS: Docusate Sodium 100 MG Cap PO PRN (10:12)
[2017-02-10] MEDS: Simethicone 80 MG Tab.Chew PO PRN (10:13)
[2017-02-10 12:01] VITALS: BP 125/69
[2017-02-10] MEDS ORDERED: Ondansetron 4 MG/2 ML SDV IV ONE (12:29)
[2017-02-10] MEDS ORDERED: Oxytocin/Normal Saline 30 UNIT/500 ML BAG IV ONE (12:29)
[2017-02-10] MEDS ORDERED: Dexamethasone 4 MG/ML SDV IV ONE (12:29)
[2017-02-10] MEDS ORDERED: Morphine PF 5 MG/10 ML SDV IV ONE (12:29)
[2017-02-10] MEDS ORDERED: Phenylephrine 1% 10 MG/ML SDV IV ONE (12:29)
[2017-02-10] MEDS ORDERED: Ketorolac 30 MG/ML SDV IVPUSH ONE (12:29)
[2017-02-10] MEDS ORDERED: Lactated Ringers 1,000 ML IV ONE ×2 (12:29)
== END 2017-02-10 12:30 | disposition home or self-care (01) | DRG 766 ==
LOC: DL.OBCHECK 05:08 → DL.OB 05:16 → OBSVTOIN 07:25 → DL.OB 07:25
PROVIDERS: ADMIT Family Medicine; ATTEND Family Medicine
PROC: 10D00Z1 Extraction of Products of Conception, Low, Open Approach (ICD-10-PCS; principal; 2017-02-07)
PROC: 4A1HXFZ Monitoring of Products of Conception, Cardiac Rhythm, External Approach (ICD-10-PCS; 2017-02-07)
PROC: 3E0R3BZ Introduction of Anesthetic Agent into Spinal Canal, Percutaneous Approach (ICD-10-PCS; 2017-02-07)
DX: O76 Abnormality in fetal heart rate and rhythm complicating labor and delivery (principal); Z3A.40 40 weeks gestation of pregnancy; Z37.0 Single live birth
CPT/HCPCS: 01961; 36415; 85027; 86850; 86900; 86901; A9270-GY; J0690; J1100; J1885; J2274; J2370; J2405; J2590; J7120